=== PATIENT | male | born 1980 | race Caucasian/White ===

== ENCOUNTER 2020-08-06 16:27 | Outpatient (CLI) | payer BC, SELFPAY ==
--- NOTE | ~2020-08-06 | MR_ITS ---
EXAMINATION: MR shoulder RT wo con, MR humerus RT wo con DATE: 08/06/2020 18:23 INDICATION: Right shoulder and arm pain TECHNIQUE: 1. Magnetic resonance imaging (MRI) of the right shoulder was performed without intravenous contrast. Sequences included axial PD-weighted FS FSE, coronal oblique PD-weighted FS FSE, coronal oblique T2- weighted FS FSE, sagittal PD-weighted FS FSE, and sagittal T1-weighted SE. 2. MRI of the right humerus was performed without intravenous contrast. Sequences included axial T1- weighted FSE and fluid sensitive FSE STIR. COMPARISON: Right humerus radiographs dated 07/23/2020 FINDINGS: RIGHT SHOULDER: Coracoacromial arch: The acromion undersurface is curved in morphology (type II). The coracoacromial ligament is normal. M ild acromioclavicular osteoarthritis. Rotator cuff: Mild supraspinatus and infraspinatus and subscapularis tendinopathy. There is bursal sided fraying al asha the distal supraspinatus and infraspinatus tendons without a discrete measurable fluid signal int ensity tear defect. A couple small lytic lesions consistent with degenerative cystic or erosive clancy e along the infraspinatus footplate at the middle facet of the greater tuberosity. A small portion of the articular side of the infraspinatus tendon appears to terminate overlying the more posterior of the lytic lesions with lax appearance suggesting either small tear or fragmentation and loosening of its osseous attachment. The affected portion of the tendon appears to involve less than one third of the tendon thickness and measures approximately 5 mm AP. The teres minor tendon is normal. Normal rot ator cuff muscle bulk and signal. Biceps tendon, glenoid labrum and glenohumeral cartilage: Long head of the biceps tendon is normal. Amorphous mild increased signal at the posterior superior g lenoid labrum suggesting degeneration without a discrete tear plane. The inferior labrum is diminutiv e also suggesting chronic degeneration without a discrete tear. Glenohumeral cartilage is normal. Fluid: Physiologic amount of fluid in the glenohumeral joint and biceps tendon sheath. No loose osteochondra l bodies. Mild increased fluid signal in the subacromial/subdeltoid bursa consistent with mild bursit is. Bones: Normal marrow signal with no edema, fracture or abnormal marrow replacing process. RIGHT HUMERUS/UPPER ARM: Alignment is normal. Normal bone marrow signal throughout. No joint effusion at the partially visuali zed right elbow. No asymmetric atrophy or abnormal signal throughout the musculature of the right upp er arm. Neurovascular structures are unremarkable. No pathologically enlarged right axillary lymphade nopathy. IMPRESSION: 1. Mild rotator cuff tendinopathy with bursal sided fraying along the supraspinatus and infraspinatus tendon and small mild articular sided tear at the insertion of the posterior infraspinatus tendon wh ere there is one of a pair of small lytic cystic/erosive lesions which are likely related to chronic rotator cuff disease. 2. Degeneration without discrete tear at the posterior superior and immediately inferior right glenoi d labrum. 3. Mild acromioclavicular osteoarthritis with mild underlying subacromial subdeltoid bursitis. Reviewed, dictated and finalized at location B. IMPRESSION: 1. Mild rotator cuff tendinopathy with bursal sided fraying along the supraspin atus and infraspinatus tendon and small mild articular sided tear at the insert ion of the posterior infraspinatus tendon where there is one of a pair of small lytic cystic/erosive lesions which are likely related to chronic rotator cuff disease. 2. Degeneration without discrete tear at the posterior superior and immediately inferior right glenoid labru
== END 2020-08-06 16:28 ==
PROVIDERS: Visit Provider Nurse Practitioner Family
DX: M19.011 Primary osteoarthritis, right shoulder (principal); M79.601 Pain in right arm
CPT/HCPCS: 73218; 73221

== ENCOUNTER 2022-05-26 20:15 | Emergency (ER) | payer BC, SELFPAY ==
[2022-05-26 20:18] VITALS: BP 101/70; PULSE 113; RESP 16; TEMP 36.4; O2SAT 97
[2022-05-26 22:47] VITALS: BP 109/68; PULSE 94; RESP 16; TEMP 36.6; O2SAT 97
[2022-05-26 23:28] LABS: Influenza A QL RT-PCR Negative (Negative); Influenza B QL RT-PCR Negative (Negative); SARS-CoV-2 RNA PCR Positive
--- NOTE | 2022-05-26 23:42 | ED.URI ---
HPI - URI/Sore Throat General Chief Complaint: Upper Respiratory Infection Stated Complaint: +covid, fever, hot flashes Time Seen by Provider: 05/26/22 23:33 History of Present Illness HPI Narrative: 41-year-old male here for evaluation of fever, body aches, generalized malaise over the past 2 days. He took a COVID test at home that was positive. Presents to the ED as he needs a documented positive test for work note. He denies any chest pain or shortness of breath. He reports relief after ibuprofen. He is healthy and has no past medical history. He was vaccinated against COVID. Related Data Home Medications Medication Instructions Recorded Confirmed ibuprofen 200 mg tablet 200 mg PO Q6H PRN 07/23/20 testosterone 75 mg implant pellet 150 mg subcut WEEKLY 07/23/20 Allergies Allergy/AdvReac Type Severity Reaction Status Date / Time No Known Allergies Allergy Verified 05/26/22 20:21 Review of Systems Review of Systems: Gen: Reports fevers and chills Eyes: Denies eye pain or visual change ENT: Denies congestion Respiratory: Reports cough CV: Denies chest pain or palpitations GI: Denies abdominal pain nausea, emesis or diarrhea denies burning, urgency, frequency or hematuria Musculoskeletal: Denies back pain or muscle pain Neuro: Denies numbness, tingling, weakness or focal weakness Skin: Denies rash Except as documented, all other systems reviewed and negative PMFSH Past Medical History Medical History History of reduction of orbital fracture Right arm pain Right shoulder pain Rotator cuff tendinitis Triceps strain Vision abnormalities Weight gain Surgical History Surgical History History of cranial surgery oribit fracture repair 2004 Social History Social History Smoking packs per day: 0.25 Smoking cigarettes per day: 5.0 Years smoked: 2 Smoking pack-years: 0.50 Smoking status: Current every day smoker Tobacco type: cigarettes Alcohol intake: never Gender identity (if verbalized by the patient): Male Exam Narrative: APPEARANCE: Well appearing, no pain in distress, well-nourished. Head: Normocephalic and atraumatic. EYES: PERRLA/EOMI, conjunctivae clear NOSE: No nasal drainage EARS: External ear normal in appearance THROAT: Oropharynx is clear. Mucous membranes are moist. NECK: Supple. No adenopathy, no masses. RESPIRATORY: Airway patent, respirations nonlabored. Clear to auscultation bilaterally, no rales, rhonchi, wheezing. CARDIOVASCULAR: Regular rate and rhythm without murmurs, rubs, or gallops. ABDOMINAL: Normoactive bowel sounds. Soft, nontender, nondistended. No rebound tenderness or guarding. MUSCULOSKELETAL: Extremities are warm and well-perfused. Moves all extremities well. No edema. NEURO: Normal speech. No focal neurologic deficits. SKIN: Skin is warm and dry. No rashes. PSYCHIATRIC: Normal affect/mood.. Course Vital Signs Vital signs: Vital Signs Temperature 97.6 F 05/26/22 20:18 Pulse Rate 113 H 05/26/22 20:18 Respiratory Rate 16 05/26/22 20:18 Blood Pressure 101/70 05/26/22 20:18 Pulse Oximetry 97 05/26/22 20:18 Oxygen Delivery Room Air 05/26/22 20:18 Temperature 97.9 F 05/26/22 22:47 Pulse Rate 94 05/26/22 22:47 Respiratory Rate 16 05/26/22 22:47 Blood Pressure 109/68 05/26/22 22:47 Pulse Oximetry 97 05/26/22 22:47 Oxygen Delivery Room Air 05/26/22 23:35 MDM - URI/Sore Throat MDM Narrative Medical decision making narrative: 41-year-old male here for evaluation of body aches, generalized malaise, fevers in the setting of a positive COVID test; requesting work note. COVID is positive here. He is nontoxic-appearing, initially slightly tachycardic which improved in the ED without intervention. No hypoxia. His heart and lungs are c
== END 2022-05-27 00:11 | disposition home or self-care (01) ==
LOC: ANHED 23:51
PROVIDERS: Emergency Medicine; Emergency Provider Physician Assistant; PCP Family Medicine
DX: U07.1 COVID-19 (principal)
CPT/HCPCS: 87636; 99283

== ENCOUNTER 2022-07-28 15:56 | Emergency (ER) | payer BC, SELFPAY ==
[2022-07-28 16:09] VITALS: BP 127/79; PULSE 65; RESP 18; TEMP 36.2; O2SAT 100
--- NOTE | 2022-07-28 16:29 | ED.EXTPRO ---
HPI - Extremity Problem General Chief complaint: Extremity Problem,Nontraumatic Stated complaint: toe pain lt foot Time Seen by Provider: 07/28/22 16:29 Source: patient Mode of arrival: ambulatory Limitations: no limitations History of Present Illness HPI Narrative: 42 y/o male presented for c/o left great toe pain, states he thinks it is infected. He pulled an ingrown nail from the side about 2 weeks ago after noticing redness and swelling. Since then it has become more swollen, red and painful. Also has had some yellow drainage. He has soaked it in Epson salt without significant change. Rates pain 3/10. Wears work boots daily, says the toe rubs the top. Denies any other concerns. Related Data Allergies Allergy/AdvReac Type Severity Reaction Status Date / Time No Known Allergies Allergy Verified 07/28/22 16:08 Review of Systems Review of Systems: CONSTITUTIONAL: Denies body aches, fever, chills, or sweats. EYES: Denies visual changes, redness, or discharge. ENT: Denies rhinorrhea, congestion CARDIOVASCULAR: Denies chest pain, palpitations, or edema. RESPIRATORY: Denies cough or dyspnea. GASTROINTESTINAL: Denies abdominal pain, nausea, vomiting, or diarrhea. SKIN: per HPI MUSCULOSKELETAL: Denies back pain, joint pain, or myalgia. NEUROLOGIC: Denies headache, numbness, tingling, or weakness. [facility] Past Medical History Medical History History of reduction of orbital fracture Right arm pain Right shoulder pain Rotator cuff tendinitis Triceps strain Vision abnormalities Weight gain Surgical History Surgical History History of cranial surgery oribit fracture repair 2004 Social History Social History Smoking packs per day: 0.25 Smoking cigarettes per day: 5.0 Years smoked: 2 Smoking pack-years: 0.50 Smoking status: Current every day smoker Tobacco type: cigarettes Alcohol intake: never Gender identity (if verbalized by the patient): Male Comments At time of signature, I have reviewed and agree with nursing past medical, surgical, social and family history unless otherwise noted. Please see nursing chart for further information. There is no relevant family history pertinent to the presenting complaint Exam Narrative: GENERAL: Well-appearing HEAD: Normocephalic, atraumatic. EYES: conjunctivae clear, and EOMI. ENT: Mucous membranes moist. Oropharynx without edema, erythema or lesions. NECK: Supple. No lymphadenopathy CHEST: Clear to auscultation. HEART: Regular rate and rhythm. SKIN: Warm, dry. left great toe lateral aspect with moderate swelling and erythema laterally and proximally to nail base, fluctuance laterally; small amount purulent drainage over nail, tender. NEURO: Alert and oriented x3. Course Course Emergency Course: Patient is aware of diagnosis, understands and agrees to treatment plan. Anticipatory guidance given. Patient agrees to follow-up as directed and is aware of reasons to seek care at the emergency department. Portions of this record may have been created with voice recognition software Level of Care: Express Care Visit Vital Signs Vital signs: Vital Signs Temperature 97.2 F L 07/28/22 16:09 Pulse Rate 65 07/28/22 16:09 Respiratory Rate 18 07/28/22 16:09 Blood Pressure 127/79 07/28/22 16:09 Pulse Oximetry 100 07/28/22 16:09 Oxygen Delivery Room Air 07/28/22 16:09 Temperature 97.2 F L 07/28/22 16:09 Pulse Rate 65 07/28/22 16:09 Respiratory Rate 18 07/28/22 16:09 Blood Pressure 127/79 07/28/22 16:09 Pulse Oximetry 100 07/28/22 16:09 Oxygen Delivery Room Air 07/28/22 16:09 Reviewed Procedures Abscess I/D left great toe: Technique: needle aspiration (#18g) Irrigation: No I&D Results: Blood Abcess I&D Additional
== END 2022-07-28 16:56 | disposition home or self-care (01) ==
PROVIDERS: Emergency Provider Nurse Practitioner Family; PCP Family Medicine
DX: L03.032 Cellulitis of left toe (principal); F17.210 Nicotine dependence, cigarettes, uncomplicated
CPT/HCPCS: 10060; 99213; G0463

== ENCOUNTER 2025-04-28 08:06 | Emergency (ER) | payer BC, SELFPAY ==
--- OUTSIDE RECORDS SUMMARY | 2025-04-28 08:08 | XMS_ITS | Clinical Summary ---
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
--- OUTSIDE RECORDS SUMMARY | 2025-04-28 08:08 | XMS_ITS | Encounter Summary ---
Author Organization [facility] Address 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
--- OUTSIDE RECORDS SUMMARY | 2025-04-28 08:08 | XMS_ITS | Encounter Summary ---
Author Organization [facility] Address [address] [place] [address] Care Team Providers Care Hot Mill Observer Name Role Phone Er, Authorized P Primary Care Provider Unavailab le Encounter Details Date Type Department Care Team (Late st Contact Info) Description 04/17/2005 Outpatient Historical [facility] Family Medicine [address] [place] [phone] Herve Goodman, DO [address] [place] [phone] Social History Tobacco Use Types Packs/Day Years Used Date Smoking Tobacco: Never Assessed Sex and Gender Information Value Date Recorded Sex Assigned at Not on file 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
--- OUTSIDE RECORDS SUMMARY | 2025-04-28 08:08 | XMS_ITS | Encounter Summary ---
Author Organization [facility] Address [address] [place] [address] Care Team Providers Care Deli Cutter Slicer Name Role Phone Er, Authorized P Primary Care Provider Unavailab le Encounter Details Date Type Department Care Team (Late st Contact Info) Description 04/20/[address] 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
--- OUTSIDE RECORDS SUMMARY | 2025-04-28 08:08 | XMS_ITS | Encounter Summary ---
Author Organization [facility] Address [address] [place] [address] Care Team Providers Care Railroad Shop Inspector Name Role Phone Er, Authorized P Primary Care Provider Unavailab le Encounter Details Date Type Department Care Team (Late st Contact Info) Description 01/13/2007 Outpatient Historical [facility] Family Medicine [address] [place] [phone] Herve Goodman, DO [address] [place] [phone] Social History Tobacco Use Types Packs/Day Years Used Date Smoking Tobacco: Never Assessed Sex and Gender Information Value Date Recorded Sex Assigned at Not on file 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
--- OUTSIDE RECORDS SUMMARY | 2025-04-28 08:08 | XMS_ITS | Encounter Summary ---
Author Organization [facility] Address [address] [place] [address] Care Team Providers Care Dumper Mold Cleaner Name Role Phone Er, Authorized P Primary Care Provider Unavailab le Encounter Details Date Type Department Care Team (Late st Contact Info) Description 04/20/2007 Outpatient Historical [facility] Family Medicine [address] [place] [phone] Herve Goodman, DO [address] [place] [phone] Social History Tobacco Use Types Packs/Day Years Used Date Smoking Tobacco: Never Assessed Sex and Gender Information Value Date Recorded Sex Assigned at Not on file Legal Sex Male 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
--- OUTSIDE RECORDS SUMMARY | 2025-04-28 08:08 | XMS_ITS | Encounter Summary ---
Author Organization [facility] Address [address] [place] [address] Care Team Providers Care Interior Wirer Name Role Phone Er, Authorized P Primary Care Provider Unavailab le Encounter Details Date Type Department Care Team (Late st Contact Info) Description 08/09/2003 Emergency [facility] Brie Cuba MD [address] [place] [address] Emergency [place] [address] Er, Authorized P NO ADDRESS ON FILE ACUTE ATOPIC CONJUNCTIVITIS (Primary Dx) Social History Tobacco Use Types Packs/Day Years Used Date Smoking Tobacco: Never Assessed Sex and Gender Information Value Date Recorded Sex Assigned at Not on file 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
--- NOTE | 2025-04-28 08:09 | ED.GENADULT ---
HPI - General Adult General Chief complaint: Upper Respiratory Infection Stated complaint: Sore throat Time Seen by Provider: 04/28/25 08:10 Source: patient Mode of arrival: ambulatory Limitations: no limitations History of Present Illness HPI narrative: 44-year-old male patient presents to the [facility] with complaints of a sore throat and runny nose for the past 3 days. Denies fevers body aches or chills. Patient states he has been taking some [id number] Mucinex Tylenol and ibuprofen. Related Data Allergies Allergy/AdvReac Type Severity Reaction Status Date / Time No Known Allergies Allergy Verified 04/28/25 08:21 Review of Systems Review of Systems: CONSTITUTIONAL: Denies fever, chills, or sweats. EYES: Denies visual changes, redness, or discharge. ENT: Positive rhinorrhea, congestion, sore throat, denies otalgia. CARDIOVASCULAR: Denies chest pain, palpitations, or edema. RESPIRATORY: Denies cough or dyspnea. GASTROINTESTINAL: Denies abdominal pain, nausea, vomiting, or diarrhea. GENITOURINARY: Denies dysuria or hematuria. SKIN: Denies rash or itching. MUSCULOSKELETAL: Denies back pain, joint pain, or myalgia. NEUROLOGIC: Denies headache, numbness, or weakness. PSYCHIATRIC: Denies anxiety or depression. [facility] [place] Surgical History Surgical History History of cranial surgery oribit fracture repair 2004 Social History Social History Smoking packs per day: 0.25 Smoking cigarettes per day: 5.0 Years smoked: 2 Smoking pack-years: 0.50 Smoking status: Current every day smoker Tobacco type: cigarettes Alcohol intake: never Substance use: never Substance use type: does not use Lack of Transportation: No Lack of Food: Never True Current Housing: I Have Housing Concerned About Future Housing: No Difficulty Paying Gas/Electric Bills: No Difficulty Paying for Meds: No Currently Unemployed: No Education: High School Diploma/GED Difficulty w/ Childcare or Family Care: No Living arrangements: with family Occupation/Education: occupation Gender identity (if verbalized by the patient): Male Sexual Orientation (if Verbalized by the Patient): Straight or Heterosexual Comments At the time of my signature I agree with nursing past medical history, surgical, social, and family history. There is no relevant family history pertinent to the presenting complaint. Exam Narrative: GENERAL: Well-appearing, well-nourished, and in no acute distress. HEAD: Normocephalic, atraumatic. EYES: PERRLA and EOMI. ENT: Nares erythema edema noted bilaterally, no rhinorrhea or epistaxis. Mucous membranes moist. posterior pharynx with erythema no tonsillar enlargement no exudates or lesions present. There is postnasal drip noted. NECK: Supple. No lymphadenopathy CHEST: Clear to auscultation. No respiratory distress. HEART: Regular rate and rhythm. No murmur heard. Normal peripheral pulses. ABDOMEN: Soft, nontender, nondistended, normal active bowel sounds. EXTREMITIES: Normal range of motion. No edema. SKIN: Warm, dry, no rash. NEURO: No focal deficits. Alert and oriented x3. Course Course Level of Care: Express Care Visit Vital Signs Vital signs: Vital Signs Temperature 36.7 C 04/28/25 08:26 Pulse Rate 86 04/28/25 08:26 Respiratory Rate 18 04/28/25 08:26 Blood Pressure 114/70 04/28/25 08:26 Pulse Oximetry 97 04/28/25 08:26 Oxygen Delivery Room Air 04/28/25 08:26 Temperature 36.7 C 04/28/25 08:26 Pulse Rate 86 04/28/25 08:26 Respiratory Rate 18 04/28/25 08:26 Blood Pressure 114/70 04/28/25 08:26 Pulse Oximetry 97 04/28/25 08:26 Oxygen Delivery Room Air 04/28/25 08:26 vital signs reviewed. MDM MDM Narrative Medical decision making narrative: Notified patient that his point of care testing for strep, influenza and COVID are all negative today. We will send the strep swab to the lab for culture and if culture comes back positive we will call in an antibiotic at that time. Discussed with him this is most likely viral and discussed with him he can not continue taking [id number] medications including warm salt water gargles, hot tea and honey, and edjz-zsj-[id number] vitamins to help boost his immune system. Patient verbalized understanding denies any other questions or concerns at time Differential Diagnosis Differential Diagnosis: Differential diagnosis: Allergic rhinitis, chronic sinusitis, tonsillitis, acute sinusitis, infectious mononucleosis, seasonal influenza, pertussis, diphtheria, meningococcal disease, viral syndrome, viral bronchitis, RSV, COVID-19 Lab Data Labs: Lab Results 04/28/25 Range/Units 08:26 POC Grp A Strep Screen Negative (Negative) Critical Care Time Critical Care Time Critical Care Time: No Discharge Plan Discharge Clinical Impression: Pharyngitis Patient Disposition: Home Condition: Stable Instructions: Antibiotic Form, Pharyngitis (ED) Additional Instructions: A sore throat can be caused by an infection from a virus or bacteria. Sore throat can also be caused by postnasal drip, allergies, and exposure to smoke. A viral sore throat last 3-4 days and cannot be treated with antibiotics. One type of sore throat virus, infectious mononucleosis (mono), can last for 3 weeks and older children. The germs that cause these infections are contagious and can be spread by coughing or sharing drinks or utensils. Contact her primary care physician or go to the ER if: Your trouble breathing or swallowing because her throat is swollen or sore. You're drooling because it hurts too much to swallow. You're painful lump in your throat go away after 5 days. You're fever is higher than 10 2??F or last longer than 3 days. You have confusion. You are blood in your throat. You're sore throat should feel better within 3-5 days without treatment if it is caused by virus. You may need the following: Ibuprofen or Tylenol as needed for pain or fever Gargle warm salt water, hot tea with honey may help soothe the throat vitamins C, 2000 mg in the morning and 2000 mg in the evening. 50 mg sink daily for 5 days and vitamin D3 2000 IU daily Drink more liquids, cold or warm drinks may help soothe her throat. Humidifier in your room. Cough drops, ice, soft foods, or popsicles may help soothe her throat. A spoonful of honey could help with inflammation and soothe her throat. Wash her hands with soap and water, do not share food or drinks, throat away her toothbrush after 72 hours. Patient Language: Citizen Of [place] Prescriptions: No Action ibuprofen 800 mg tablet 800 mg PO TID PRN (Reason: pain) Qty: 14 0RF tadalafil 5 mg tablet 5 mg PO DAILY Qty: 30 5RF testosterone cypionate [Depo-Testosterone] 100 mg/mL oil 150 mg IM WEEKLY Qty: 10 0RF Rx Instructions: as a single dose omeprazole 20 mg capsule,delayed release(DR/EC) 20 mg PO DAILY Qty: 90 1RF methocarbamol 750 mg tablet 750 mg PO DAILY 90 Days Qty: 90 2RF Follow-up/Referrals: Marvin Lopez MD [Primary Care Provider, [facility]] Time of Disposition: 08:45
[2025-04-28 08:26] VITALS: BP 114/70; PULSE 86; RESP 18; TEMP 36.7; O2SAT 97
[2025-04-28 08:27] LABS: EDSTREPNEGPOS1 Negative (Negative)
[2025-04-28 08:46] LABS: EDCOVIDSCREEN Negative (Negative); EDINFLUASCREEN Negative (Negative); EDINFLUBSCREEN Negative (Negative)
== END 2025-04-28 08:51 | disposition home or self-care (01) ==
PROVIDERS: Emergency Provider Nurse Practitioner Family; PCP Family Medicine
DX: J02.9 Acute pharyngitis, unspecified (principal); Z20.822 Contact with and (suspected) exposure to COVID-19; F17.210 Nicotine dependence, cigarettes, uncomplicated
CPT/HCPCS: 87081; 87426; 87804; 87880; 99213; G0463